=== PATIENT | female | born 1985 | race Two or more races ===

== ENCOUNTER 2017-10-21 19:27 | Emergency (ER) | payer SELFPAY | END 2017-10-21 20:29 | disposition home or self-care (01) | LOC: ER 19:27 | DX: K64.4 Residual hemorrhoidal skin tags (principal) | CPT/HCPCS: 99283 ==

== ENCOUNTER 2018-08-29 13:29 | Emergency (ER) | payer SELFPAY ==
[~2018-08-29] VITALS: Ht 167.6 cm; Wt 77.1 kg
[~2018-08-29 13:29] MED LIST: DOCU-109 PO; HYDR25SU18 RC
--- NOTE | 2018-08-29 15:41 | PHYS DOC ---
Past Medical History Past Medical History: No Pertinent History Past Surgical History: No Surgical History Alcohol Use: None Drug Use: None Adult General Chief Complaint Chief Complaint: ABDOMINAL PAIN HPI HPI Patient is a 32 year old female who presents to the ED today complaining of mild mid abdominal pain with nausea that began Wednesday. Patient also states the pain radiates to her right shoulder. Denies any vomiting. Denies any chance she is , denies any urgency frequency dysuria. Denies any fever. Review of Systems Review of Systems Constitutional: Denies fever or chills [] Eyes: Denies change in visual acuity, redness, or eye pain [] HENT: Denies nasal congestion or sore throat [] Respiratory: Denies cough or shortness of breath [] Cardiovascular: No additional information not addressed in HPI [] GI: Reports mid abdominal pain and nausea, denies vomiting, bloody stools or diarrhea [] : Denies dysuria or hematuria [] Musculoskeletal: Denies back pain or joint pain [] Integument: Denies rash or skin lesions [] Neurologic: Denies headache, focal weakness or sensory changes [] All other systems were reviewed and found to be within normal limits, except as documented in this note. Current Medications Current Medications Current Medications Medications (Trade) Dose Ordered Sig/Chanda Start Time Stop Time Status Last Admin Dose Admin Famotidine (Pepcid Vial) 20 mg 1X ONCE 08/29/18 15:45 08/29/18 15:46 DC 08/29/18 16:12 20 MG Ketorolac Tromethamine (Toradol 30mg Vial) 30 mg 1X ONCE 08/29/18 15:45 08/29/18 15:46 DC 08/29/18 16:12 30 MG Allergies Allergies Allergies Coded Allergies Type Severity Reaction Last Updated Verified No Known Drug Allergies 10/13/15 No Physical Exam Physical Exam Constitutional: Well developed, well nourished, no acute distress, non-toxic appearance. [] HENT: Normocephalic, atraumatic, bilateral external ears normal, oropharynx moist, no oral exudates, nose normal. [] Eyes: PERRLA, EOMI, conjunctiva normal, no discharge. [] Neck: Normal range of motion, no tenderness, supple, no stridor. [] Cardiovascular:Heart rate regular rhythm, no murmur [] Lungs & Thorax: Bilateral breath sounds clear to auscultation [] Abdomen: Rounded abdomen. Bowel sounds normal, soft, slight tenderness around the umbilicus, no right upper quadrant tenderness, negative Giraldo's, no right lower quadrant tenderness, negative psoas sign, negative obturator sign, negative Rovsing sign.No guarding, no rebound tenderness. No masses, no pulsatile masses. [] Skin: Warm, dry, no erythema, no rash. [] Back: No tenderness, no CVA tenderness. [] Extremities: No tenderness, no cyanosis, no clubbing, ROM intact, no edema. [] Neurologic: Alert and oriented X 3, normal motor function, normal sensory function, no focal deficits noted. [] Psychologic: Affect normal, judgement normal, mood normal. [] Current Patient Data Vital Signs Vital Signs Date Time Temp Pulse Resp B/P (MAP) Pulse Ox O2 Delivery O2 Flow Rate FiO2 08/29/18 16:30 82 14 122/72 (89) 100 Room Air 08/29/18 15:18 98.1 98.1 Lab Values Laboratory Tests Test 08/29/18 15:32 08/29/18 15:43 08/29/18 16:10 Urine Collection Type Unknown Urine Color Yellow Urine Clarity Clear Urine pH 6.5 Urine Specific [place] 1.025 Urine Protein Negative mg/dL (NEG-TRACE) Urine Glucose (UA) Negative mg/dL (NEG) Urine Ketones (Stick) Negative mg/dL (NEG) Urine Blood Moderate (NEG) Urine Nitrite Positive (NEG) Urine Bilirubin Negative (NEG) Urine Urobilinogen Dipstick 0.2 mg/dL (0.2 mg/dL) Urine Leukocyte Esterase Negative (NEG) Urine RBC Occ /HPF (0-2) Urine WBC Occ /HPF (0-4) Urine Squamous Epithelial Cells Mod /LPF Urine Bacteria Many /HPF (0-FEW) Urine Mucus Mod /LPF POC Urine HCG, Qualitative Hcg negative (Negative) White Blood Count 8.2 x10^3/uL (4.0-11.0) Red Blood Count 3.89 x10^6/uL (3.50-5.40) Hemoglobin 11.2 g/dL (12.0-15.5) L Hematocrit 33.7 % (36.0-47.0) L Mean Corpuscular Volume 87 fL (79-100) Mean Corpuscular Hemoglobin 29 pg (25-35) Mean Corpuscular Hemoglobin Concent 33 g/dL (31-37) Red Cell Distribution Width 13.1 % (11.5-14.5) Platelet Count 417 x10^3/uL (140-400) H Neutrophils (%) (Auto) 65 % (31-73) Lymphocytes (%) (Auto) 28 % (24-48) Monocytes (%) (Auto) 5 % (0-9) Eosinophils (%) (Auto) 1 % (0-3) Basophils (%) (Auto) 1 % (0-3) Neutrophils # (Auto) 5.3 x10^3uL (1.8-7.7) Lymphocytes # (Auto) 2.3 x10^3/uL (1.0-4.8) Monocytes # (Auto) 0.4 x10^3/uL (0.0-1.1) Eosinophils # (Auto) 0.1 x10^3/uL (0.0-0.7) Basophils # (Auto) 0.0 x10^3/uL (0.0-0.2) Sodium Level 140 mmol/L (136-145) Potassium Level 3.6 mmol/L (3.5-5.1) Chloride Level 103 mmol/L (98-107) Carbon Dioxide Level 28 mmol/L (21-32) Anion Gap 9 (6-14) Blood Urea Nitrogen 14 mg/dL (7-20) Creatinine 0.7 mg/dL (0.6-1.0) Estimated GFR (Cockcroft-Gault) 97.0 BUN/Creatinine Ratio 20 (6-20) Glucose Level 106 mg/dL (70-99) H Calcium Level 8.8 mg/dL (8.5-10.1) Total Bilirubin 0.3 mg/dL (0.2-1.0) Aspartate Amino Transferase (AST) 13 U/L (15-37) L Alanine Aminotransferase (ALT) 25 U/L (14-59) Alkaline Phosphatase 58 U/L (46-116) Total Protein 7.8 g/dL (6.4-8.2) Albumin 4.0 g/dL (3.4-5.0) Albumin/Globulin Ratio 1.1 (1.0-1.7) Lipase 114 U/L (73-393) Ethyl Alcohol Level < 10 mg/dL (0-10) Laboratory Tests 08/29/18 16:10 Laboratory Tests 08/29/18 16:10 EKG EKG [] Radiology/Procedures Radiology/Procedures [] Course & Med Decision Making Course & Med Decision Making Pertinent Labs and Imaging studies reviewed. (See chart for details) This is a 32-year-old female patient presenting to the ED today with pain around the umbilicus radiating to the right shoulder that began Wednesday. Patient is also complaining of nausea vomiting. Urine analysis is noted for UTI , abdominal ultrasound is negative for any acute findings. CBC ,CMP with not acute findings, lipase is normal. Patient was discharged with cephalexin. Follow -up with PCP in 1-2 weeks. Tylenol/ Motrin for pain. Dragon Disclaimer Dragon Disclaimer This electronic medical record was generated, in whole or in part, using a voice recognition dictation system. Departure Departure Impression: Primary Impression: Urinary tract infection Disposition: HOME, SELF-CARE Condition: STABLE Referrals: NO PCP (PCP) Follow-up with your doctor in 1-2 weeks Patient Instructions: Urinary Tract Infection Additional Instructions: You were evaluated in the emergency noted to have urinary tract infection, Take the antibiotics until completed. Push fluids. Take Tylenol/ Motrin for pain or fever. Follow-up with your own doctor in the next 1-2 weeks. Please come back to the ED at any point symptoms worsen. Scripts Cephalexin (CEPHALEXIN) 500 Mg Tablet 1 TAB PO BID, #14 TAB Prov: KUMAR CABRALES APRN 08/29/18 Problem Qualifiers Primary Impression: Urinary tract infection Urinary tract infection type: site unspecified Hematuria presence: without hematuria Qualified Codes: N39.0 - Urinary tract infection, site not specified KUMAR CABRALES APRN Aug 29, 2018 15:41
[2018-08-29] MEDS ORDERED: FAMOTIDINE 20 MG/2 ML VIAL IVP ONE (15:45)
[2018-08-29] MEDS ORDERED: KETOROLAC 30 MG/ML VIAL. IV ONE (15:45)
[2018-08-29 15:51] LABS: BILIRUBIN,URINE NEGATIVE (NEG); CLARITY,URINE CLEAR; COLOR,URINE YELLOW; NITRITE,URINE POSITIVE (NEG); PH,URINE 6.5; PROTEIN,URINE NEGATIVE (NEG-TRACE); UROBILINOGEN,URINE 0.2 mg/dL (0.2 mg/dL)
--- NOTE | 2018-08-29 16:16 | RAD ---
EXAM: Abdomen sonogram. HISTORY: Pain. TECHNIQUE: Sonographic imaging of the abdomen was performed. COMPARISON: None. FINDINGS: The liver is normal in size. No focal hepatic lesion is seen. There is suggestion of slight hepatic steatosis. The gallbladder wall is upper normal in thickness, likely due to slight gallbladder contraction. The common bile duct is normal in caliber. The kidneys are unremarkable. The pancreas, aorta and inferior vena cava are partially obscured due to bowel gas. The spleen is normal in size. IMPRESSION: 1. Slightly contracted gallbladder, limiting evaluation. 2. Suspected slight hepatic steatosis. Electronically signed by: Criss Diaz MD (08/29/2018 4:13 PM) [id number]
[2018-08-29 16:18] LABS: BACTERIA,URINE MANY /HPF (0-FEW); RBC,URINE OCC /HPF (0-2); SQUAMOUS EPITHELIAL CELL,UR MOD /LPF; WBC,URINE OCC /HPF (0-4)
[2018-08-29 16:28] LABS: BASO % 1 % (0-3); EOS # 0.1 x10^3/uL (0.0-0.7); EOS % 1 % (0-3); HEMATOCRIT 33.7 % (36.0-47.0); HEMOGLOBIN 11.2 g/dL (12.0-15.5); LYMPH # 2.3 x10^3/uL (1.0-4.8); LYMPH % 28 % (24-48); MEAN CORPUSCULAR HEMOGLOBIN 29 pg (25-35); MEAN CORPUSCULAR HGB CONC 33 g/dL (31-37); MEAN CORPUSCULAR VOLUME 87 fL (79-100); MONO # 0.4 x10^3/uL (0.0-1.1); MONO % 5 % (0-9); NEUT # 5.3 x10^3uL (1.8-7.7); NEUT % 65 % (31-73); PLATELET COUNT 417 x10^3/uL (140-400); RED BLOOD COUNT 3.89 x10^6/uL (3.50-5.40); RED CELL DISTRIBUTION WIDTH 13.1 % (11.5-14.5); WHITE BLOOD COUNT 8.2 x10^3/uL (4.0-11.0)
[2018-08-29 16:37] LABS: CALCIUM 8.8 mg/dL (8.5-10.1); CREATININE 0.7 mg/dL (0.6-1.0); POTASSIUM 3.6 mmol/L (3.5-5.1)
[2018-08-29 16:43] LABS: ALBUMIN/GLOBULIN RATIO 1.1 (1.0-1.7); TOTAL BILIRUBIN 0.3 mg/dL (0.2-1.0); TOTAL PROTEIN 7.8 g/dL (6.4-8.2)
[2018-08-29] MEDS ORDERED: CEPH500T PO (17:20)
[2018-08-29 18:00] VITALS: BP 121/71
[2018-08-29 20:19] LABS: BARBITURATES NEG (NEG); BENZODIAZEPINES NEG (NEG); CANNABINOIDS NEG (NEG); COCAINE NEG (NEG); METHADONE NEG (NEG); OPIATES NEG (NEG); PHENCYCLIDINE NEG (NEG)
[2018-08-29 20:23] LABS: AMPHETAMINE/METHAMPHETAMINE NEG (NEG)
== END 2018-08-29 19:07 | disposition home or self-care (01) ==
LOC: ER 13:29
DX: N39.0 Urinary tract infection, site not specified (principal); R11.0 Nausea; R10.11 Right upper quadrant pain
CPT/HCPCS: 36415; 76700; 80053; 80307; 81001; 81025; 83690; 85025; 87086; 96374; 96375; 99284; G0480; J1885; J3490; 87186